=== PATIENT | male | born 1950 | race Caucasian/White ===

== ENCOUNTER 2021-03-17 23:46 | Inpatient (IN) ==
[2021-03-18 07:15] LABS: Hematocrit 14 % (42-52); Hemoglobin 4.5 g/dL (14.0-18.0); Mean Corpuscular HGB Conc 33 g/dL (31-36); Mean Corpuscular Hemoglobin 41 pg (27-31); Mean Corpuscular Volume 125 fL (80-94); Mean Platelet Volume 7.5 fL (7.4-10.4); Platelet Count 150 10^3/uL (150-450); Red Cell Distribution Width 20 % (10-15); White Blood Count 34.9 10^3/uL (3.5-10.8)
[2021-03-18 07:23] LABS: Albumin 4.1 g/dL (3.2-5.2); Albumin/Globulin Ratio 1.8 (1-3); Calcium 9.2 mg/dL (8.6-10.3); EGFR African American 76.6 (>60); EGFR Non-African American 63.3 (>60); Globulin 2.3 g/dL (2-4); Potassium 3.6 mmol/L (3.5-5.0); Total Bilirubin 2.8 mg/dL (0.2-1.0); Total Protein 6.4 g/dL (6.4-8.9)
[2021-03-18] MEDS ORDERED: Ondansetron 4 mg VIAL 2 MG/ML 2 ml VIAL IV PRN (08:42)
[2021-03-18 09:33] LABS: Immature Retic Fraction 0.72; RBC Retic Count 0.77 10^6/uL (4.18-5.48)
[2021-03-18 09:37] LABS: Rapid COVID-19 Molecular Undetected (Undetected)
[2021-03-18 11:04] LABS: Anisocytosis 2+; Hypochromasia 1+; Macrocytosis 2+; Microcytosis 1+; Polychromasia 2+
[2021-03-18 11:06] LABS: Spherocytes 2+
[2021-03-18 11:08] LABS: ABS Basophils 0.1 10^3/ul (0-0.2); ABS Eosinophils 0.2 10^3/ul (0-0.6); ABS Lymphocytes 28.5 10^3/ul (1.0-4.8); ABS Monocytes 0.8 10^3/ul (0-0.8); ABS Neutrophils 5.3 10^3/ul (1.5-7.7); ABS Nucleated RBC 0.2 10^3/ul; Eosinophil % 0.5 %; Lymphocyte % 81.7 %; Nucleated Red Blood Cells % 0.4
[2021-03-18 11:16] LABS: Corrected Retic Count 4.7 % (0.5-1.5); Hematocrit for Retic CNT 15 % (42-52)
[2021-03-18 13:46] LABS: Hematocrit 14 % (42-52); Hemoglobin 4.1 g/dL (14.0-18.0)
[2021-03-18] MEDS: methylPREDNISolone 125 mg 2 ML VIAL IV SCH (14:06)
[2021-03-18] MEDS: Enoxaparin 40 MG/0.4 ML SYR SUBCUT SCH (17:49)
[2021-03-19 09:58] LABS: Hematocrit 23 % (42-52); Hemoglobin 7.3 g/dL (14.0-18.0); Mean Corpuscular HGB Conc 32 g/dL (31-36); Mean Corpuscular Hemoglobin 35 pg (27-31); Mean Corpuscular Volume 107 fL (80-94); Mean Platelet Volume 7.7 fL (7.4-10.4); Platelet Count 135 10^3/uL (150-450); Red Blood Count 2.11 10^6 /uL (4.18-5.48); Red Cell Distribution Width 26 % (10-15); White Blood Count 72.8 10^3/uL (3.5-10.8)
[2021-03-19 10:20] LABS: Anisocytosis 2+; Hypochromasia 1+; Macrocytosis 1+; Microcytosis 1+; Polychromasia 2+; Spherocytes 1+
[2021-03-19 10:21] LABS: ABS Basophils 0.4 10^3/ul (0-0.2); ABS Eosinophils 0.1 10^3/ul (0-0.6); ABS Lymphocytes 60.5 10^3/ul (1.0-4.8); ABS Neutrophils 10.8 10^3/ul (1.5-7.7); ABS Nucleated RBC 0.1 10^3/ul; Eosinophil % 0.1 %; Lymphocyte % 83.1 %; Nucleated Red Blood Cells % 0.2
[2021-03-19] MEDS: methylPREDNISolone 125 mg 2 ML VIAL IV SCH (12:37)
[2021-03-19] MEDS: Enoxaparin 40 MG/0.4 ML SYR SUBCUT SCH (16:57)
[2021-03-20 05:50] LABS: Calcium 8.6 mg/dL (8.6-10.3); EGFR African American 94.6 (>60); EGFR Non-African American 78.2 (>60); Potassium 3.8 mmol/L (3.5-5.0)
[2021-03-20 09:57] LABS: RBC Retic Count 1.72 10^6/uL (4.18-5.48); Red Blood Count 1.72 10^6 /uL (4.18-5.48)
[2021-03-20 10:05] LABS: Corrected Retic Count 4.6 % (0.5-1.5); Hematocrit 19 % (42-52); Hematocrit for Retic CNT 19 % (42-52); Mean Corpuscular HGB Conc 35 g/dL (31-36); Mean Corpuscular Hemoglobin 37 pg (27-31); Mean Corpuscular Volume 107 fL (80-94); Mean Platelet Volume 8.7 fL (7.4-10.4); Platelet Count 108 10^3/uL (150-450); Red Cell Distribution Width 26 % (10-15); White Blood Count 53.5 10^3/uL (3.5-10.8)
[2021-03-20 10:27] LABS: Anisocytosis 1+; Polychromasia 1+
[2021-03-20 10:29] LABS: ABS Basophils 0.1 10^3/ul (0-0.2); ABS Lymphocytes 42.1 10^3/ul (1.0-4.8); ABS Monocytes 1.4 10^3/ul (0-0.8); ABS Neutrophils 9.9 10^3/ul (1.5-7.7); ABS Nucleated RBC 0.2 10^3/ul; Lymphocyte % 78.7 %; Nucleated Red Blood Cells % 0.3
[2021-03-20 11:35] LABS: Hemoglobin 6.4 g/dL (14.0-18.0)
[2021-03-20] MEDS: methylPREDNISolone 125 mg 2 ML VIAL IV SCH (12:09)
[2021-03-20 14:35] LABS: Hepatitis B Surface Antigen Nonreactive (Nonreactive)
[2021-03-20 14:53] LABS: Hepatitis B Surface Ab Not Immune (Immune)
[2021-03-20] MEDS: Enoxaparin 40 MG/0.4 ML SYR SUBCUT SCH (16:40)
[2021-03-20 18:51] LABS: Hematocrit 26 % (42-52); Hemoglobin 8.6 g/dL (14.0-18.0); Mean Corpuscular HGB Conc 33 g/dL (31-36); Mean Corpuscular Hemoglobin 33 pg (27-31); Mean Corpuscular Volume 102 fL (80-94); Mean Platelet Volume 7.5 fL (7.4-10.4); Platelet Count 111 10^3/uL (150-450); Red Blood Count 2.59 10^6 /uL (4.18-5.48); Red Cell Distribution Width 24 % (10-15); White Blood Count 66.3 10^3/uL (3.5-10.8)
[2021-03-21 06:25] LABS: Corrected Retic Count 4.9 % (0.5-1.5); Hematocrit 23 % (42-52); Hematocrit for Retic CNT 23 % (42-52); Hemoglobin 8.2 g/dL (14.0-18.0); Immature Retic Fraction 0.64; Mean Corpuscular HGB Conc 35 g/dL (31-36); Mean Corpuscular Hemoglobin 35 pg (27-31); Mean Corpuscular Volume 101 fL (80-94); Mean Platelet Volume 7.8 fL (7.4-10.4); Platelet Count 102 10^3/uL (150-450); RBC Retic Count 2.32 10^6/uL (4.18-5.48); Red Blood Count 2.32 10^6 /uL (4.18-5.48); Red Cell Distribution Width 23 % (10-15); White Blood Count 51.1 10^3/uL (3.5-10.8)
[2021-03-21 06:41] LABS: Albumin/Globulin Ratio 1.8 (1-3); Calcium 9.2 mg/dL (8.6-10.3); EGFR African American 91.2 (>60); EGFR Non-African American 75.4 (>60); Globulin 2.2 g/dL (2-4); Magnesium 2.4 mg/dL (1.9-2.7); Potassium 3.9 mmol/L (3.5-5.0); Total Bilirubin 2.2 mg/dL (0.2-1.0); Total Protein 6.2 g/dL (6.4-8.9)
[2021-03-21 07:00] LABS: ABS Basophils 0.1 10^3/ul (0-0.2); ABS Lymphocytes 41.8 10^3/ul (1.0-4.8); ABS Monocytes 0.9 10^3/ul (0-0.8); ABS Neutrophils 8.3 10^3/ul (1.5-7.7); ABS Nucleated RBC 0.2 10^3/ul; Lymphocyte % 81.8 %; Nucleated Red Blood Cells % 0.3
[2021-03-21 07:25] LABS: Macrocytosis 1+; Polychromasia 1+
[2021-03-21] MEDS ORDERED: methylPREDNISolone 125 mg 2 ML VIAL IV PRN (08:29)
[2021-03-21] MEDS ORDERED: diPHENhydraMINE IV 50 MG/ML 1 ml VIAL (BENADRYL) IV ONE (09:00)
[2021-03-21] MEDS: methylPREDNISolone 125 mg 2 ML VIAL IV SCH (09:06)
[2021-03-21] MEDS ORDERED: riTUXimab-ABBS 10 MG/ML 10 ML VIAL IVPB ONE (09:30)
[2021-03-21] MEDS ORDERED: RITUXIMAB ABBS IVPB ONE (10:00)
[2021-03-21] MEDS ORDERED: diPHENhydraMINE IV 50 MG/ML 1 ml VIAL (BENADRYL) IV PRN (10:00)
[2021-03-21] MEDS ORDERED: Famotidine IV 10 MG/ML 2 ml VIAL (20 mg) IV SLOW PU PRN (10:00)
[2021-03-21] MEDS ORDERED: Meperidine 50 mg/ml SYRINGE 1 ml IV PRN (10:00)
[2021-03-21] MEDS ORDERED: NS 0.9% IVPB ONE (10:00)
[2021-03-21] MEDS: Enoxaparin 40 MG/0.4 ML SYR SUBCUT SCH (16:06)
[2021-03-22 06:32] LABS: Hematocrit 23 % (42-52); Hemoglobin 7.7 g/dL (14.0-18.0); Mean Corpuscular HGB Conc 34 g/dL (31-36); Mean Corpuscular Hemoglobin 35 pg (27-31); Mean Corpuscular Volume 101 fL (80-94); Mean Platelet Volume 7.8 fL (7.4-10.4); Platelet Count 90 10^3/uL (150-450); Red Blood Count 2.23 10^6 /uL (4.18-5.48); Red Cell Distribution Width 24 % (10-15); White Blood Count 23.2 10^3/uL (3.5-10.8)
[2021-03-22 07:00] LABS: Calcium 8.5 mg/dL (8.6-10.3); EGFR African American 75.1 (>60); EGFR Non-African American 62.1 (>60); Magnesium 2.2 mg/dL (1.9-2.7); Potassium 3.3 mmol/L (3.5-5.0)
[2021-03-22] MEDS ORDERED: Potassium Chlor 20 meq TAB.ER PO ONE (08:03)
[2021-03-22] MEDS: methylPREDNISolone 125 mg 2 ML VIAL IV SCH (11:58)
[2021-03-22] MEDS: Enoxaparin 40 MG/0.4 ML SYR SUBCUT SCH (17:05)
[2021-03-23 06:27] LABS: Hematocrit 24 % (42-52); Hemoglobin 8.4 g/dL (14.0-18.0); Mean Corpuscular HGB Conc 35 g/dL (31-36); Mean Corpuscular Hemoglobin 35 pg (27-31); Mean Corpuscular Volume 101 fL (80-94); Platelet Count 95 10^3/uL (150-450); Red Blood Count 2.37 10^6 /uL (4.18-5.48); Red Cell Distribution Width 25 % (10-15); White Blood Count 29.2 10^3/uL (3.5-10.8)
[2021-03-23 06:44] LABS: Calcium 8.9 mg/dL (8.6-10.3); EGFR African American 87.1 (>60); Magnesium 2.1 mg/dL (1.9-2.7); Potassium 3.6 mmol/L (3.5-5.0)
[2021-03-23 10:26] LABS: Troponin I 0.04 ng/mL (<0.03)
[2021-03-23] MEDS: methylPREDNISolone 125 mg 2 ML VIAL IV SCH (11:07)
[2021-03-23 14:10] LABS: Troponin I 0.04 ng/mL (<0.03)
[2021-03-23] MEDS: Enoxaparin 40 MG/0.4 ML SYR SUBCUT SCH (18:32)
[2021-03-24 05:25] LABS: Hematocrit 25 % (42-52); Hemoglobin 8.5 g/dL (14.0-18.0); Mean Corpuscular HGB Conc 34 g/dL (31-36); Mean Corpuscular Hemoglobin 35 pg (27-31); Mean Corpuscular Volume 102 fL (80-94); Mean Platelet Volume 7.9 fL (7.4-10.4); Platelet Count 105 10^3/uL (150-450); Red Blood Count 2.44 10^6 /uL (4.18-5.48); Red Cell Distribution Width 25 % (10-15); White Blood Count 30.3 10^3/uL (3.5-10.8)
[2021-03-24 05:47] LABS: Calcium 9.3 mg/dL (8.6-10.3); EGFR African American 82.4 (>60); EGFR Non-African American 68.1 (>60); Magnesium 2.2 mg/dL (1.9-2.7); Potassium 3.7 mmol/L (3.5-5.0)
[2021-03-24 11:48] VITALS: BP 120/69
[2021-03-24] MEDS ORDERED: Potassium Chlor 20 meq TAB.ER PO ONE (12:00)
[2021-03-24] MEDS ORDERED: Potassium Chlor 10 meq TAB PO ONE (12:00)
[2021-03-24] MEDS ORDERED: Regadenoson 0.4 MG/5 ML SYRINGE ONE (15:50)
[2021-04-07] MEDS ORDERED: CMCS: Testosterone Cypionate (NF) 200 MG/ML VIAL IM SCH (09:00)
== END 2021-03-24 20:00 | disposition home or self-care (01) | DRG 660 ==
LOC: ED 23:46 → MED 03-18 10:50 → SUATTDRO 03-18 10:50 → MED 03-24 06:58
PROVIDERS: ADMIT Internal Medicine; ATTEND Internal Medicine

== ENCOUNTER 2021-06-14 12:57 | Inpatient (IN) ==
[2021-06-14 13:56] LABS: PCO2 Arterial 35 mmHg (35-45); PO2 Arterial 70 mmHg (80-100)
[2021-06-14 14:42] LABS: Hematocrit 35 % (42-52); Hemoglobin 11.6 g/dL (14.0-18.0); Mean Corpuscular HGB Conc 33 g/dL (31-36); Mean Corpuscular Hemoglobin 30 pg (27-31); Mean Corpuscular Volume 91 fL (80-94); Mean Platelet Volume 8.6 fL (7.4-10.4); Platelet Count 298 10^3/uL (150-450); Red Blood Count 3.83 10^6 /uL (4.18-5.48); Red Cell Distribution Width 17 % (10-15); White Blood Count 19.3 10^3/uL (3.5-10.8)
[2021-06-14 14:54] LABS: Activated Partial Thrombo Time 31.7 seconds (26.0-38.0); INR 1.3 (0.86-1.15)
[2021-06-14 15:03] LABS: Troponin I 0.01 ng/mL (<0.03)
[2021-06-14] MEDS ORDERED: Lactated Ringers 1000 ml BAG 1,000 ML IV ONE ×2 (15:07→21:46)
[2021-06-14 15:15] LABS: ABS Basophils 0.3 10^3/ul (0-0.2); ABS Eosinophils 0.1 10^3/ul (0-0.6); ABS Lymphocytes 6.1 10^3/ul (1.0-4.8); ABS Monocytes 1.3 10^3/ul (0-0.8); ABS Neutrophils 11.6 10^3/ul (1.5-7.7); Eosinophil % 0.3 %; Lymphocyte % 31.6 %; Nucleated Red Blood Cells % 0.1
[2021-06-14 15:17] LABS: Urine Appearance Clear; Urine Bilirubin Negative (Negative); Urine Blood Negative (Negative); Urine Color Amber; Urine Glucose Negative (Negative); Urine Ketones Negative (Negative); Urine Nitrite Negative (Negative); Urine Protein 1+(30 mg/dL) (Negative); Urine Specific Gravity 1.019 (1.002-1.030); Urine Urobilinogen Negative (Negative)
[2021-06-14 15:19] LABS: Albumin 4.1 g/dL (3.2-5.2); Albumin/Globulin Ratio 1.5 (1-3); C Reactive Protein 235.42 mg/L (<8.01); Calcium 9.8 mg/dL (8.6-10.3); Globulin 2.8 g/dL (2-4); Potassium 3.7 mmol/L (3.5-5.0); Total Bilirubin 1.1 mg/dL (0.2-1.0); Total Protein 6.9 g/dL (6.4-8.9); eGFR CKD-EPI 44.4 (>60)
[2021-06-14 15:20] LABS: Urine Amorphous Crystals Present (Absent); Urine Bacteria 1+ (Absent); Urine Red Blood Cell Trace(0-2/hpf) (Absent); Urine White Blood Cell 1+(6-10/hpf) (Absent)
[2021-06-14] MEDS ORDERED: Iodixanol (CONTRAST) 320 MG/ML 100 ML SDV IV ONE (15:47)
[2021-06-14 16:07] LABS: Salicylate < 2.50 mg/dL (<30)
[2021-06-14 16:08] LABS: Acetaminophen < 15 mcg/mL
[2021-06-14] MEDS ORDERED: Rivastigmine 1.5 mg CAP (NF) PO ONE (19:18)
[2021-06-14] MEDS ORDERED: DULoxetine DR 30 mg CAP PO SCH (21:00)
[2021-06-14] MEDS ORDERED: Fluticasone NASAL SPRAY 50MCG 16 gm SPRAY BTL INTRANASAL SCH (21:00)
[2021-06-15] MEDS ORDERED: Amoxicillin/Clavul 875/125 TAB (Augmentin 875 tab) PO SCH (01:50)
[2021-06-15] MEDS ORDERED: Azithromycin 500 mg/250 ml NS 500 MG/250 ML BAG IVPB SCH ×2 (02:30→22:00)
[2021-06-15] MEDS: cefTRIAXone 1 gm/50 mL NS BAG 1 GM/50 ML BAG IVPB SCH ×2 (02:41→20:39)
[2021-06-15 03:43] LABS: TSH Ultra Thyroid Stim Horm 4.85 mcIU/mL (0.34-5.60)
[2021-06-15 06:56] LABS: Hematocrit 32 % (42-52); Hemoglobin 10.9 g/dL (14.0-18.0); Mean Corpuscular HGB Conc 34 g/dL (31-36); Mean Corpuscular Hemoglobin 31 pg (27-31); Mean Corpuscular Volume 91 fL (80-94); Mean Platelet Volume 8.7 fL (7.4-10.4); Platelet Count 304 10^3/uL (150-450); Red Blood Count 3.53 10^6 /uL (4.18-5.48); Red Cell Distribution Width 17 % (10-15); White Blood Count 20.2 10^3/uL (3.5-10.8)
[2021-06-15 07:05] LABS: ABS Basophils 0.2 10^3/ul (0-0.2); ABS Lymphocytes 4.5 10^3/ul (1.0-4.8); ABS Monocytes 1.2 10^3/ul (0-0.8); ABS Neutrophils 14.3 10^3/ul (1.5-7.7); Eosinophil % 0.2 %; Lymphocyte % 22.3 %; Nucleated Red Blood Cells % 0.1
[2021-06-15 07:18] LABS: Calcium 9.2 mg/dL (8.6-10.3); Magnesium 2.2 mg/dL (1.9-2.7); Potassium 3.9 mmol/L (3.5-5.0); eGFR CKD-EPI 70.2 (>60)
[2021-06-15] MEDS ORDERED: Enoxaparin 30 MG/0.3 ML SYR SUBCUT SCH (07:30)
[2021-06-15] MEDS: Enoxaparin 40 MG/0.4 ML SYR SUBCUT SCH (09:20)
[2021-06-15] MEDS: Multivitamins/Minerals TAB PO SCH (09:21)
[2021-06-15] MEDS: CMCS:Rivastigmine 1.5 mg CAP (NF) PO SCH ×2 (11:43→20:40)
[2021-06-16 05:51] LABS: Hematocrit 32 % (42-52); Hemoglobin 10.6 g/dL (14.0-18.0); Mean Corpuscular HGB Conc 33 g/dL (31-36); Mean Corpuscular Hemoglobin 30 pg (27-31); Mean Corpuscular Volume 91 fL (80-94); Mean Platelet Volume 8.7 fL (7.4-10.4); Platelet Count 322 10^3/uL (150-450); Red Blood Count 3.54 10^6 /uL (4.18-5.48); Red Cell Distribution Width 17 % (10-15)
[2021-06-16 06:08] LABS: Calcium 9.5 mg/dL (8.6-10.3)
[2021-06-16] MEDS: Multivitamins/Minerals TAB PO SCH (08:55)
[2021-06-16] MEDS: CMCS:Rivastigmine 1.5 mg CAP (NF) PO SCH ×2 (08:56→22:23)
[2021-06-16] MEDS: Enoxaparin 40 MG/0.4 ML SYR SUBCUT SCH (08:56)
[2021-06-16] MEDS ORDERED: Lactated Ringers 1000 ml BAG 1,000 ML IV ONE (09:54)
[2021-06-16 10:34] LABS: PSA Screening Total 18.424 ng/mL (0-4.000)
[2021-06-17] MEDS: Multivitamins/Minerals TAB PO SCH (09:03)
[2021-06-17] MEDS: Enoxaparin 40 MG/0.4 ML SYR SUBCUT SCH (09:04)
[2021-06-17] MEDS: CMCS:Rivastigmine 1.5 mg CAP (NF) PO SCH ×2 (09:05→20:52)
[2021-06-17 09:10] LABS: Hematocrit 29 % (42-52); Hemoglobin 9.7 g/dL (14.0-18.0); Mean Corpuscular HGB Conc 33 g/dL (31-36); Mean Corpuscular Hemoglobin 30 pg (27-31); Mean Corpuscular Volume 90 fL (80-94); Mean Platelet Volume 9.1 fL (7.4-10.4); Platelet Count 350 10^3/uL (150-450); Red Blood Count 3.25 10^6 /uL (4.18-5.48); Red Cell Distribution Width 17 % (10-15)
[2021-06-17 09:26] LABS: Calcium 9.3 mg/dL (8.6-10.3); Potassium 3.7 mmol/L (3.5-5.0); eGFR CKD-EPI 78.6 (>60)
[2021-06-17] MEDS ORDERED: Potassium Chlor 20 meq TAB.ER PO ONE (10:09)
[2021-06-17] MEDS: Senna TAB 8.6 mg TAB PO SCH (20:49)
[2021-06-17] MEDS: Calcium Carb (TUMS) 500 mg CHEW TAB PO SCH (21:20)
[2021-06-18 05:16] LABS: Hematocrit 26 % (42-52); Hemoglobin 8.8 g/dL (14.0-18.0); Mean Corpuscular HGB Conc 33 g/dL (31-36); Mean Corpuscular Hemoglobin 30 pg (27-31); Mean Corpuscular Volume 89 fL (80-94); Mean Platelet Volume 8.8 fL (7.4-10.4); Platelet Count 390 10^3/uL (150-450); Red Blood Count 2.97 10^6 /uL (4.18-5.48); Red Cell Distribution Width 17 % (10-15); White Blood Count 14.4 10^3/uL (3.5-10.8)
[2021-06-18 05:26] LABS: ABS Eosinophils 0.2 10^3/ul (0-0.6); ABS Lymphocytes 5.6 10^3/ul (1.0-4.8); ABS Monocytes 0.7 10^3/ul (0-0.8); ABS Neutrophils 7.9 10^3/ul (1.5-7.7); Eosinophil % 1.7 %; Lymphocyte % 38.4 %
[2021-06-18 05:32] LABS: Anion Gap 4 mmol/L (2-11); Blood Urea Nitrogen 16 mg/dL (6-24); CO2 Carbon Dioxide 32 mmol/L (22-32); Calcium 9.2 mg/dL (8.6-10.3); Chloride 93 mmol/L (101-111); Glucose 110 mg/dL (70-100); Potassium 3.7 mmol/L (3.5-5.0); Sodium 129 mmol/L (135-145); eGFR CKD-EPI 91.3 (>60)
[2021-06-18] MEDS ORDERED: Potassium Chlor 20 meq TAB.ER PO ONE (07:27)
[2021-06-18] MEDS: CMCS:Rivastigmine 1.5 mg CAP (NF) PO SCH ×2 (09:59→21:50)
[2021-06-18] MEDS: Calcium Carb (TUMS) 500 mg CHEW TAB PO SCH ×2 (09:59→21:48)
[2021-06-18] MEDS: Enoxaparin 40 MG/0.4 ML SYR SUBCUT SCH (10:00)
[2021-06-18] MEDS: Multivitamins/Minerals TAB PO SCH (10:00)
[2021-06-18 10:40] LABS: ALT 51 U/L (7-52); AST 64 U/L (13-39); Albumin 3.3 g/dL (3.2-5.2); Albumin/Globulin Ratio 1.2 (1-3); Alkaline Phosphatase 98 U/L (35-149); Globulin 2.7 g/dL (2-4); Indirect Bilirubin 0.7 mg/dL (0.3-1.0)
[2021-06-18 11:04] LABS: Corrected Retic Count 0.7 % (0.5-1.5); Hematocrit for Retic CNT 27 % (42-52); Immature Retic Fraction 0.14; RBC Retic Count 2.89 10^6/uL (4.18-5.48)
[2021-06-18 11:15] LABS: Vitamin B12 346 pg/mL (180-914)
[2021-06-18 11:25] LABS: Iron 20 ug/dL (50-212); LDH 533 U/L (140-271)
[2021-06-18] MEDS: Senna TAB 8.6 mg TAB PO SCH (21:49)
[2021-06-19 07:12] LABS: Hematocrit 27 % (42-52); Hemoglobin 9.1 g/dL (14.0-18.0); Mean Corpuscular HGB Conc 34 g/dL (31-36); Mean Corpuscular Hemoglobin 30 pg (27-31); Mean Corpuscular Volume 89 fL (80-94); Mean Platelet Volume 9.5 fL (7.4-10.4); Platelet Count 493 10^3/uL (150-450); Red Blood Count 3.02 10^6 /uL (4.18-5.48); Red Cell Distribution Width 17 % (10-15); White Blood Count 14.4 10^3/uL (3.5-10.8)
[2021-06-19 07:32] LABS: Calcium 9.4 mg/dL (8.6-10.3); eGFR CKD-EPI 91.3 (>60)
[2021-06-19] MEDS: Calcium Carb (TUMS) 500 mg CHEW TAB PO SCH ×2 (09:12→20:41)
[2021-06-19] MEDS: Multivitamins/Minerals TAB PO SCH (09:13)
[2021-06-19] MEDS: CMCS:Rivastigmine 1.5 mg CAP (NF) PO SCH ×2 (09:13→20:44)
[2021-06-19] MEDS: Enoxaparin 40 MG/0.4 ML SYR SUBCUT SCH (09:13)
[2021-06-19] MEDS ORDERED: Morphine 2 MG/ML SYRINGE IV ONE (11:18)
[2021-06-19 11:36] LABS: PCO2 Arterial 37 mmHg (35-45); PO2 Arterial 81 mmHg (80-100)
[2021-06-19 12:06] LABS: Magnesium 2.1 mg/dL (1.9-2.7); Phosphorus 4.5 mg/dL (2.5-5.0)
[2021-06-19] MEDS ORDERED: Iodixanol (CONTRAST) 320 MG/ML 100 ML SDV IV ONE (14:01)
[2021-06-19] MEDS: Senna TAB 8.6 mg TAB PO SCH (20:40)
[2021-06-20 08:28] LABS: Hematocrit 24 % (42-52); Hemoglobin 7.9 g/dL (14.0-18.0); Mean Corpuscular HGB Conc 33 g/dL (31-36); Mean Corpuscular Hemoglobin 30 pg (27-31); Mean Corpuscular Volume 89 fL (80-94); Mean Platelet Volume 8.8 fL (7.4-10.4); Platelet Count 555 10^3/uL (150-450); Red Blood Count 2.67 10^6 /uL (4.18-5.48); Red Cell Distribution Width 17 % (10-15); White Blood Count 10.4 10^3/uL (3.5-10.8)
[2021-06-20 08:34] LABS: ABS Basophils 0.1 10^3/ul (0-0.2); ABS Eosinophils 0.2 10^3/ul (0-0.6); ABS Lymphocytes 3.4 10^3/ul (1.0-4.8); ABS Monocytes 0.6 10^3/ul (0-0.8); ABS Neutrophils 6.2 10^3/ul (1.5-7.7); Eosinophil % 1.9 %; Lymphocyte % 32.5 %
[2021-06-20] MEDS: Calcium Carb (TUMS) 500 mg CHEW TAB PO SCH ×2 (08:35→21:49)
[2021-06-20] MEDS: CMCS:Rivastigmine 1.5 mg CAP (NF) PO SCH ×2 (08:35→21:51)
[2021-06-20] MEDS: Enoxaparin 40 MG/0.4 ML SYR SUBCUT SCH (08:35)
[2021-06-20 08:36] LABS: Calcium 8.8 mg/dL (8.6-10.3); Magnesium 2.1 mg/dL (1.9-2.7); Potassium 3.3 mmol/L (3.5-5.0); eGFR CKD-EPI 87.8 (>60)
[2021-06-20] MEDS: Multivitamins/Minerals TAB PO SCH (08:36)
[2021-06-20 16:27] LABS: % Iron Saturation 10 % (14 - 50); Total Iron Binding Capacity 173 mcg/dL (250 - 400)
[2021-06-20 18:31] LABS: Ferritin > 1500.0 ng/mL (24-336)
[2021-06-20] MEDS ORDERED: Potassium Chlor 20 meq TAB.ER PO ONE (20:36)
[2021-06-20] MEDS ORDERED: Iodixanol (CONTRAST) 320 MG/ML 100 ML SDV IV ONE (20:40)
[2021-06-20] MEDS: Senna TAB 8.6 mg TAB PO SCH (22:43)
[2021-06-21 08:56] LABS: Hematocrit 25 % (42-52); Hemoglobin 8.1 g/dL (14.0-18.0); Mean Corpuscular HGB Conc 33 g/dL (31-36); Mean Corpuscular Hemoglobin 29 pg (27-31); Mean Corpuscular Volume 87 fL (80-94); Mean Platelet Volume 8.3 fL (7.4-10.4); Platelet Count 656 10^3/uL (150-450); Red Blood Count 2.85 10^6 /uL (4.18-5.48); Red Cell Distribution Width 17 % (10-15); White Blood Count 11.1 10^3/uL (3.5-10.8)
[2021-06-21 09:37] LABS: Calcium 8.6 mg/dL (8.6-10.3); Magnesium 2.1 mg/dL (1.9-2.7); Potassium 3.8 mmol/L (3.5-5.0); eGFR CKD-EPI 88.9 (>60)
[2021-06-21] MEDS: CMCS:Rivastigmine 1.5 mg CAP (NF) PO SCH ×2 (10:26→20:27)
[2021-06-21] MEDS: Calcium Carb (TUMS) 500 mg CHEW TAB PO SCH ×2 (10:26→20:25)
[2021-06-21] MEDS: Multivitamins/Minerals TAB PO SCH (10:26)
[2021-06-21] MEDS: Enoxaparin 40 MG/0.4 ML SYR SUBCUT SCH (10:27)
[2021-06-21] MEDS ORDERED: Senna TAB 8.6 mg TAB PO ONE (12:00)
[2021-06-21] MEDS ORDERED: Polyethylene Glycol 3350 17 GM PACKET PO PRN (12:28)
[2021-06-21] MEDS: Senna TAB 8.6 mg TAB PO SCH (20:25)
[2021-06-22 05:20] LABS: Hematocrit 25 % (42-52); Hematocrit for Retic CNT 25 % (42-52); Hemoglobin 8.4 g/dL (14.0-18.0); Mean Corpuscular HGB Conc 34 g/dL (31-36); Mean Corpuscular Hemoglobin 30 pg (27-31); Mean Corpuscular Volume 88 fL (80-94); Mean Platelet Volume 8.3 fL (7.4-10.4); Platelet Count 719 10^3/uL (150-450); RBC Retic Count 2.84 10^6/uL (4.18-5.48); Red Blood Count 2.84 10^6 /uL (4.18-5.48); Red Cell Distribution Width 17 % (10-15); White Blood Count 11.2 10^3/uL (3.5-10.8)
[2021-06-22 05:26] LABS: Corrected Retic Count 1.7 % (0.5-1.5)
[2021-06-22 05:37] LABS: Calcium 8.9 mg/dL (8.6-10.3); Magnesium 2.1 mg/dL (1.9-2.7); Potassium 3.5 mmol/L (3.5-5.0); eGFR CKD-EPI 78.6 (>60)
[2021-06-22] MEDS ORDERED: Potassium Chlor 20 meq TAB.ER PO ONE (07:07)
[2021-06-22] MEDS: Multivitamins/Minerals TAB PO SCH (09:40)
[2021-06-22] MEDS: Enoxaparin 40 MG/0.4 ML SYR SUBCUT SCH (09:40)
[2021-06-22] MEDS: Calcium Carb (TUMS) 500 mg CHEW TAB PO SCH ×2 (09:41→20:37)
[2021-06-22] MEDS: CMCS:Rivastigmine 1.5 mg CAP (NF) PO SCH ×2 (09:42→20:36)
[2021-06-22 14:41] LABS: Rapid COVID-19 Molecular Undetected (Undetected)
[2021-06-22] MEDS ORDERED: Enoxaparin 80 MG/0.8 ML SYR SUBCUT ONE (14:45)
[2021-06-22] MEDS: Senna TAB 8.6 mg TAB PO SCH (20:37)
[2021-06-23 06:51] LABS: Hematocrit 23 % (42-52); Hemoglobin 7.5 g/dL (14.0-18.0); Mean Corpuscular HGB Conc 33 g/dL (31-36); Mean Corpuscular Hemoglobin 29 pg (27-31); Mean Corpuscular Volume 88 fL (80-94); Mean Platelet Volume 8.5 fL (7.4-10.4); Platelet Count 696 10^3/uL (150-450); Red Cell Distribution Width 17 % (10-15); White Blood Count 11.8 10^3/uL (3.5-10.8)
[2021-06-23 07:11] LABS: Calcium 8.6 mg/dL (8.6-10.3); Potassium 3.6 mmol/L (3.5-5.0); eGFR CKD-EPI 90.1 (>60)
[2021-06-23] MEDS: Calcium Carb (TUMS) 500 mg CHEW TAB PO SCH (08:06)
[2021-06-23] MEDS: Multivitamins/Minerals TAB PO SCH (08:07)
[2021-06-23] MEDS: CMCS:Rivastigmine 1.5 mg CAP (NF) PO SCH (08:08)
[2021-06-23 08:25] LABS: ABS Basophils 0.1 10^3/ul (0-0.2); ABS Eosinophils 0.4 10^3/ul (0-0.6); ABS Lymphocytes 5.6 10^3/ul (1.0-4.8); ABS Monocytes 0.6 10^3/ul (0-0.8); ABS Neutrophils 5.2 10^3/ul (1.5-7.7); Eosinophil % 3.1 %; Lymphocyte % 47.7 %; Nucleated Red Blood Cells % 0.2
[2021-06-23 08:26] LABS: RBC Morphology Normal (Normal)
[2021-06-23 18:20] VITALS: BP 117/51
== END 2021-06-23 21:40 | disposition home or self-care (01) | DRG 872 ==
LOC: EDHOLD 12:57 → ED 12:57 → SUATTDRO 20:33 → INTOOBSV 20:33 → OBSVTOIN 20:33 → EDHOLD 23:00 → MED 06-15 00:49 → SUATTDRO 06-16 13:00
PROVIDERS: ADMIT Internal Medicine; ATTEND Hospitalist

== ENCOUNTER 2021-06-27 15:27 | Inpatient (IN) ==
[2021-06-27] MEDS ORDERED: Lactated Ringers 1000 ml BAG 1,000 ML IV ONE (15:45)
[2021-06-27 16:14] LABS: Hemoglobin 5.2 g/dL (14.0-18.0)
[2021-06-27 16:20] LABS: Activated Partial Thrombo Time 40.5 seconds (26.0-38.0); INR 3.72 (0.86-1.15)
[2021-06-27 16:26] LABS: Albumin 3.3 g/dL (3.2-5.2); Albumin/Globulin Ratio 1.3 (1-3); Alkaline Phosphatase 107 U/L (35-149); Anion Gap 9 mmol/L (2-11); Blood Urea Nitrogen 32 mg/dL (6-24); C Reactive Protein 262.01 mg/L (<8.01); CO2 Carbon Dioxide 28 mmol/L (22-32); Chloride 97 mmol/L (101-111); Globulin 2.5 g/dL (2-4); Glucose 108 mg/dL (70-100); Potassium 4.7 mmol/L (3.5-5.0); Sodium 134 mmol/L (135-145); Total Protein 5.8 g/dL (6.4-8.9); eGFR CKD-EPI 47.2 (>60)
[2021-06-27 16:30] LABS: Troponin I 1.74 ng/mL (<0.03)
[2021-06-27 17:00] LABS: ABS Basophils 0.1 10^3/ul (0-0.2); ABS Lymphocytes 7.2 10^3/ul (1.0-4.8); ABS Monocytes 1.1 10^3/ul (0-0.8); ABS Neutrophils 8.3 10^3/ul (1.5-7.7); Eosinophil % 0.1 %; Hematocrit 17 % (42-52); Mean Corpuscular HGB Conc 32 g/dL (31-36); Mean Corpuscular Hemoglobin 28 pg (27-31); Mean Corpuscular Volume 88 fL (80-94); Mean Platelet Volume 8.2 fL (7.4-10.4); Platelet Count 823 10^3/uL (150-450); Red Blood Count 1.88 10^6 /uL (4.18-5.48); Red Cell Distribution Width 17 % (10-15); White Blood Count 16.8 10^3/uL (3.5-10.8)
[2021-06-27 17:01] LABS: Anisocytosis 1+; Polychromasia 2+
[2021-06-27] MEDS ORDERED: Vancomycin 1,500 MG in NS 0.9% 250 ml 250 ML IVPB ONE (17:02)
[2021-06-27] MEDS ORDERED: Cefepime 2 GM in Dextrose 2 GM/50 ML BAG IV ONE (17:02)
[2021-06-27 17:17] LABS: ALT 2791 U/L (7-52); AST 5166 U/L (13-39)
[2021-06-27] MEDS ORDERED: Cefepime 2 GM in Dextrose 2 GM/50 ML BAG IV SCH (19:00)
[2021-06-27] MEDS ORDERED: Meropenem 1 GM PREMIX(*) 1 GM/50 ML BAG IV SCH (19:00)
[2021-06-27] MEDS ORDERED: Pantoprazole 80 mg in NS BAG 80 MG/250 ML BAG IV SCH (19:00)
[2021-06-27] MEDS ORDERED: diPHENhydraMINE IV 50 MG/ML 1 ml VIAL (BENADRYL) IV ONE (19:53)
[2021-06-27 20:12] LABS: Acetaminophen < 15 mcg/mL
[2021-06-27 20:14] LABS: Urine Appearance Cloudy; Urine Bilirubin Negative (Negative); Urine Blood 3+ (Negative); Urine Color Amber; Urine Glucose Negative (Negative); Urine Ketones Negative (Negative); Urine Nitrite Negative (Negative); Urine Protein 2+(100 mg/dL) (Negative); Urine Specific Gravity 1.017 (1.002-1.030); Urine Urobilinogen Positive (Negative)
[2021-06-27 20:18] LABS: Hemoglobin 4.8 g/dL (14.0-18.0)
[2021-06-27 20:22] LABS: Urine Bacteria 1+ (Absent); Urine Red Blood Cell Trace(0-2/hpf) (Absent); Urine Squamous Epithelial Cell Present (Absent); Urine White Blood Cell Trace(0-5/hpf) (Absent)
[2021-06-27 20:25] LABS: Albumin 3.1 g/dL (3.2-5.2); Albumin/Globulin Ratio 1.3 (1-3); Alkaline Phosphatase 107 U/L (35-149); Anion Gap 11 mmol/L (2-11); Blood Urea Nitrogen 34 mg/dL (6-24); CO2 Carbon Dioxide 26 mmol/L (22-32); Calcium 8.8 mg/dL (8.6-10.3); Chloride 99 mmol/L (101-111); Globulin 2.3 g/dL (2-4); Glucose 122 mg/dL (70-100); Magnesium 2.5 mg/dL (1.9-2.7); Potassium 4.7 mmol/L (3.5-5.0); Sodium 136 mmol/L (135-145); Total Protein 5.4 g/dL (6.4-8.9); eGFR CKD-EPI 47.9 (>60)
[2021-06-27 20:31] LABS: Troponin I 1.81 ng/mL (<0.03)
[2021-06-27 20:42] LABS: ALT 2950 U/L (7-52); AST 5587 U/L (13-39)
[2021-06-27 20:47] LABS: Anisocytosis 1+; Polychromasia 2+
[2021-06-27 20:49] LABS: Hypochromasia 1+
[2021-06-27 20:55] LABS: ABS Basophils 0.1 10^3/ul (0-0.2); ABS Lymphocytes 6.6 10^3/ul (1.0-4.8); ABS Monocytes 0.9 10^3/ul (0-0.8); ABS Neutrophils 7.6 10^3/ul (1.5-7.7); ABS Nucleated RBC 1.7 10^3/ul; Eosinophil % 0.1 %; Hematocrit 15 % (42-52); Lymphocyte % 43.3 %; Mean Corpuscular HGB Conc 32 g/dL (31-36); Mean Corpuscular Hemoglobin 29 pg (27-31); Mean Corpuscular Volume 90 fL (80-94); Mean Platelet Volume 8.5 fL (7.4-10.4); Nucleated Red Blood Cells % 11.1; Platelet Count 781 10^3/uL (150-450); Red Blood Count 1.66 10^6 /uL (4.18-5.48); Red Cell Distribution Width 17 % (10-15); White Blood Count 15.2 10^3/uL (3.5-10.8)
[2021-06-27] MEDS ORDERED: SERTRALINE PO SCH (21:00)
[2021-06-27] MEDS: methylPREDNISolone 125 mg 2 ML VIAL IV SCH (21:40)
[2021-06-27 22:26] LABS: Hematocrit for Retic CNT 18 % (42-52); Immature Retic Fraction 0.52; RBC Retic Count 2.11 10^6/uL (4.18-5.48)
[2021-06-27 22:29] LABS: Hemoglobin 5.9 g/dL (14.0-18.0)
[2021-06-27 22:36] LABS: Activated Partial Thrombo Time 37.8 seconds (26.0-38.0); INR 3.82 (0.86-1.15)
[2021-06-27 22:59] LABS: Albumin 3.1 g/dL (3.2-5.2); Albumin/Globulin Ratio 1.3 (1-3); Alkaline Phosphatase 104 U/L (35-149); Anion Gap 11 mmol/L (2-11); Blood Urea Nitrogen 32 mg/dL (6-24); CO2 Carbon Dioxide 25 mmol/L (22-32); Calcium 8.6 mg/dL (8.6-10.3); Chloride 100 mmol/L (101-111); Globulin 2.3 g/dL (2-4); Glucose 107 mg/dL (70-100); Magnesium 2.4 mg/dL (1.9-2.7); Phosphorus 3.5 mg/dL (2.5-5.0); Potassium 4.5 mmol/L (3.5-5.0); Sodium 136 mmol/L (135-145); Total Protein 5.4 g/dL (6.4-8.9); eGFR CKD-EPI 52.4 (>60)
[2021-06-27 23:02] LABS: Anisocytosis 1+; Polychromasia 1+; Troponin I 1.99 ng/mL (<0.03)
[2021-06-27 23:03] LABS: ABS Basophils 0.1 10^3/ul (0-0.2); ABS Lymphocytes 6.7 10^3/ul (1.0-4.8); ABS Monocytes 0.8 10^3/ul (0-0.8); ABS Nucleated RBC 2.4 10^3/ul; Hematocrit 18 % (42-52); Lymphocyte % 45.9 %; Mean Corpuscular HGB Conc 32 g/dL (31-36); Mean Corpuscular Hemoglobin 28 pg (27-31); Mean Corpuscular Volume 87 fL (80-94); Mean Platelet Volume 8.2 fL (7.4-10.4); Nucleated Red Blood Cells % 16.5; Platelet Count 687 10^3/uL (150-450); Red Cell Distribution Width 17 % (10-15); White Blood Count 14.6 10^3/uL (3.5-10.8)
[2021-06-27 23:08] LABS: Creatine Kinase 1637 U/L (10-223)
[2021-06-27] MEDS: RIVASTIGMINE 1.5 MG PO SCH (23:21)
[2021-06-27 23:36] LABS: LDH 7975 U/L (140-271)
[2021-06-27] MEDS: Meropenem 1 GM PREMIX(*) 1 GM/50 ML BAG IV SCH (23:42)
[2021-06-27 23:47] LABS: PCO2 Arterial 26 mmHg (35-45); PO2 Arterial 118 mmHg (80-100)
[2021-06-28 00:06] LABS: ALT 3073 U/L (7-52); AST 6016 U/L (13-39)
[2021-06-28] MEDS ORDERED: D5W IV ONE ×3 (01:19→05:29)
[2021-06-28] MEDS ORDERED: ACETYLCYSTEINE IV ONE ×3 (01:19→05:29)
[2021-06-28 02:48] LABS: Hematocrit 23 % (42-52); Hemoglobin 7.7 g/dL (14.0-18.0); Mean Corpuscular HGB Conc 34 g/dL (31-36); Mean Corpuscular Hemoglobin 30 pg (27-31); Mean Corpuscular Volume 88 fL (80-94); Mean Platelet Volume 8.2 fL (7.4-10.4); Platelet Count 521 10^3/uL (150-450); Red Blood Count 2.57 10^6 /uL (4.18-5.48); Red Cell Distribution Width 16 % (10-15); White Blood Count 13.2 10^3/uL (3.5-10.8)
[2021-06-28 03:04] LABS: Albumin/Globulin Ratio 1.5 (1-3); Alkaline Phosphatase 102 U/L (35-149); Anion Gap 13 mmol/L (2-11); Blood Urea Nitrogen 32 mg/dL (6-24); CO2 Carbon Dioxide 25 mmol/L (22-32); Calcium 8.6 mg/dL (8.6-10.3); Chloride 101 mmol/L (101-111); Glucose 182 mg/dL (70-100); Magnesium 2.5 mg/dL (1.9-2.7); Phosphorus 2.1 mg/dL (2.5-5.0); Sodium 139 mmol/L (135-145)
[2021-06-28 03:09] LABS: ABS Basophils 0.1 10^3/ul (0-0.2); ABS Lymphocytes 5.4 10^3/ul (1.0-4.8); ABS Monocytes 0.4 10^3/ul (0-0.8); ABS Neutrophils 7.3 10^3/ul (1.5-7.7); ABS Nucleated RBC 2.5 10^3/ul; Lymphocyte % 40.8 %; Nucleated Red Blood Cells % 18.8
[2021-06-28 03:23] LABS: ALT 3320 U/L (7-52); AST 5923 U/L (13-39); Troponin I 1.77 ng/mL (<0.03)
[2021-06-28] MEDS ORDERED: Potassium Phosphate IV 15 MMOLE in NS 0.9% 250 ml 250 ML IVPB ONE ×2 (06:15→17:00)
[2021-06-28] MEDS ORDERED: CALCIUM GLUCONATE 1GM/50ML NS 1 GM/50 ML BAG IV ONE (06:16)
[2021-06-28] MEDS: Meropenem 1 GM PREMIX(*) 1 GM/50 ML BAG IV SCH ×3 (06:19→22:01)
[2021-06-28 07:05] LABS: Albumin 3.1 g/dL (3.2-5.2); Albumin/Globulin Ratio 1.4 (1-3); Alkaline Phosphatase 114 U/L (35-149); Blood Urea Nitrogen 31 mg/dL (6-24); CO2 Carbon Dioxide 26 mmol/L (22-32); Calcium 8.8 mg/dL (8.6-10.3); Chloride 101 mmol/L (101-111); Globulin 2.2 g/dL (2-4); Glucose 203 mg/dL (70-100); Magnesium 2.5 mg/dL (1.9-2.7); Sodium 138 mmol/L (135-145); Total Protein 5.3 g/dL (6.4-8.9); eGFR CKD-EPI 67.3 (>60)
[2021-06-28 07:11] LABS: Troponin I 1.72 ng/mL (<0.03)
[2021-06-28 07:17] LABS: Hematocrit 27 % (42-52); Hemoglobin 9.2 g/dL (14.0-18.0); Mean Corpuscular HGB Conc 35 g/dL (31-36); Mean Corpuscular Hemoglobin 30 pg (27-31); Mean Corpuscular Volume 87 fL (80-94); Mean Platelet Volume 8.6 fL (7.4-10.4); Platelet Count 490 10^3/uL (150-450); Red Blood Count 3.07 10^6 /uL (4.18-5.48); Red Cell Distribution Width 16 % (10-15)
[2021-06-28 07:18] LABS: ABS Lymphocytes 5.9 10^3/ul (1.0-4.8); ABS Monocytes 0.6 10^3/ul (0-0.8); ABS Neutrophils 9.5 10^3/ul (1.5-7.7); ABS Nucleated RBC 3.3 10^3/ul; Eosinophil % 0.1 %; Lymphocyte % 36.9 %; Nucleated Red Blood Cells % 20.8
[2021-06-28 07:42] LABS: PCO2 Arterial 31 mmHg (35-45); PO2 Arterial 76 mmHg (80-100)
[2021-06-28] MEDS ORDERED: Vancomycin per Pharmacy 1 EA NOTE FOLLOW UP SCH (08:00)
[2021-06-28] MEDS: methylPREDNISolone 125 mg 2 ML VIAL IV SCH ×2 (08:02→20:14)
[2021-06-28] MEDS: Multivitamins/Minerals TAB PO SCH (08:03)
[2021-06-28 08:05] LABS: Anion Gap 11 mmol/L (2-11)
[2021-06-28] MEDS ORDERED: Pantoprazole VIAL 40 MG VIAL IV SCH (09:00)
[2021-06-28 09:03] LABS: Potassium Redraw 3.5 mmol/L (3.5-5.0)
[2021-06-28 09:04] LABS: Phosphorus 2.4 mg/dL (2.5-5.0)
[2021-06-28 09:30] LABS: Vancomycin Trough 10.7 mcg/mL
[2021-06-28] MEDS: RIVASTIGMINE 1.5 MG PO SCH ×2 (09:30→20:12)
[2021-06-28] MEDS: Vancomycin 1,500 MG in NS 0.9% 250 ml 250 ML IVPB SCH (10:02)
[2021-06-28 20:58] LABS: Hematocrit 26 % (42-52); Hemoglobin 8.9 g/dL (14.0-18.0); Mean Corpuscular HGB Conc 35 g/dL (31-36); Mean Corpuscular Hemoglobin 30 pg (27-31); Mean Corpuscular Volume 86 fL (80-94); Platelet Count 445 10^3/uL (150-450); Red Blood Count 3.01 10^6 /uL (4.18-5.48); Red Cell Distribution Width 16 % (10-15)
[2021-06-28 21:40] LABS: White Blood Count 29.8 10^3/uL (3.5-10.8)
[2021-06-28 21:52] LABS: Hypochromasia 1+; Polychromasia 1+
[2021-06-28 21:53] LABS: Anisocytosis 1+
[2021-06-29 04:59] LABS: Hematocrit 25 % (42-52); Hemoglobin 8.4 g/dL (14.0-18.0); Mean Corpuscular HGB Conc 33 g/dL (31-36); Mean Corpuscular Hemoglobin 29 pg (27-31); Mean Corpuscular Volume 87 fL (80-94); Platelet Count 429 10^3/uL (150-450); Red Blood Count 2.93 10^6 /uL (4.18-5.48); Red Cell Distribution Width 16 % (10-15); White Blood Count 33.2 10^3/uL (3.5-10.8)
[2021-06-29 05:09] LABS: Albumin 2.9 g/dL (3.2-5.2); Albumin/Globulin Ratio 1.3 (1-3); Calcium 8.5 mg/dL (8.6-10.3); Globulin 2.2 g/dL (2-4); Magnesium 2.4 mg/dL (1.9-2.7); Phosphorus 3.1 mg/dL (2.5-5.0); Potassium 3.1 mmol/L (3.5-5.0); Total Protein 5.1 g/dL (6.4-8.9); eGFR CKD-EPI 94.3 (>60)
[2021-06-29 05:15] LABS: INR 2.22 (0.86-1.15)
[2021-06-29 05:31] LABS: Anisocytosis 1+; Polychromasia 1+
[2021-06-29 05:32] LABS: ABS Basophils 0.1 10^3/ul (0-0.2); ABS Eosinophils 0.1 10^3/ul (0-0.6); ABS Lymphocytes 15.7 10^3/ul (1.0-4.8); ABS Monocytes 0.9 10^3/ul (0-0.8); ABS Neutrophils 16.4 10^3/ul (1.5-7.7); ABS Nucleated RBC 5.2 10^3/ul; Eosinophil % 0.2 %; Lymphocyte % 47.3 %; Nucleated Red Blood Cells % 15.5
[2021-06-29] MEDS: KCL 20 MEQ/100 ML IVPREMIX 20 MEQ/100 ML BAG IV SCH ×3 (05:46→10:35)
[2021-06-29] MEDS: Meropenem 1 GM PREMIX(*) 1 GM/50 ML BAG IV SCH ×3 (05:47→22:26)
[2021-06-29] MEDS ORDERED: Lactated Ringers 1000 ml BAG 1,000 ML IV ONE (07:51)
[2021-06-29] MEDS: methylPREDNISolone 125 mg 2 ML VIAL IV SCH ×2 (08:36→19:51)
[2021-06-29] MEDS: Multivitamins/Minerals TAB PO SCH (08:37)
[2021-06-29] MEDS: Vancomycin 1,500 MG in NS 0.9% 250 ml 250 ML IVPB SCH (08:37)
[2021-06-29] MEDS: RIVASTIGMINE 1.5 MG PO SCH ×2 (08:37→19:47)
[2021-06-29] MEDS: Pantoprazole VIAL 40 MG VIAL IV SCH (08:37)
[2021-06-29] MEDS: Enoxaparin 40 MG/0.4 ML SYR SUBCUT SCH (10:35)
[2021-06-30 04:46] LABS: Albumin/Globulin Ratio 1.5 (1-3); Alkaline Phosphatase 155 U/L (35-149); Blood Urea Nitrogen 39 mg/dL (6-24); CO2 Carbon Dioxide 29 mmol/L (22-32); Calcium 8.7 mg/dL (8.6-10.3); Chloride 106 mmol/L (101-111); Glucose 146 mg/dL (70-100); Magnesium 2.5 mg/dL (1.9-2.7); Sodium 141 mmol/L (135-145); eGFR CKD-EPI 95.3 (>60)
[2021-06-30 04:57] LABS: Hematocrit 22 % (42-52); Hemoglobin 7.2 g/dL (14.0-18.0); Mean Corpuscular HGB Conc 32 g/dL (31-36); Mean Corpuscular Hemoglobin 29 pg (27-31); Mean Corpuscular Volume 91 fL (80-94); Mean Platelet Volume 9.6 fL (7.4-10.4); Platelet Count 307 10^3/uL (150-450); Red Blood Count 2.45 10^6 /uL (4.18-5.48); Red Cell Distribution Width 16 % (10-15)
[2021-06-30 05:19] LABS: Polychromasia 2+
[2021-06-30 05:22] LABS: Hypochromasia 1+
[2021-06-30 05:23] LABS: Spherocytes 1+
[2021-06-30 05:29] LABS: Anisocytosis 2+
[2021-06-30] MEDS: Meropenem 1 GM PREMIX(*) 1 GM/50 ML BAG IV SCH ×3 (05:40→22:45)
[2021-06-30 06:20] LABS: ALT 1814 U/L (7-52)
[2021-06-30] MEDS ORDERED: Vancomycin Trough Check NOTE FOLLOW UP ONE (07:30)
[2021-06-30 08:04] LABS: Anion Gap 6 mmol/L (2-11)
[2021-06-30 08:15] LABS: ABS Basophils 0.3 10^3/ul (0-0.2); ABS Lymphocytes 26.6 10^3/ul (1.0-4.8); ABS Monocytes 1.3 10^3/ul (0-0.8); ABS Neutrophils 20.5 10^3/ul (1.5-7.7); ABS Nucleated RBC 66.1 10^3/ul; Eosinophil % 0.1 %; Lymphocyte % 54.7 %; Nucleated Red Blood Cells % 135.7; White Blood Count 48.7 10^3/uL (3.5-10.8)
[2021-06-30] MEDS: methylPREDNISolone 125 mg 2 ML VIAL IV SCH ×3 (10:21→22:45)
[2021-06-30] MEDS: Multivitamins/Minerals TAB PO SCH ×2 (10:22→10:37)
[2021-06-30] MEDS: Enoxaparin 40 MG/0.4 ML SYR SUBCUT SCH (10:22)
[2021-06-30] MEDS: Pantoprazole VIAL 40 MG VIAL IV SCH (10:22)
[2021-06-30] MEDS: RIVASTIGMINE 1.5 MG PO SCH ×3 (10:23→19:51)
[2021-06-30] MEDS ORDERED: NS 0.9% IVPB ONE (10:30)
[2021-06-30] MEDS ORDERED: diPHENhydraMINE IV 50 MG/ML 1 ml VIAL (BENADRYL) IV ONE (10:30)
[2021-06-30] MEDS ORDERED: RITUXIMAB ABBS IVPB ONE (10:30)
[2021-06-30 10:57] LABS: Hematocrit 22 % (42-52); Mean Corpuscular HGB Conc 32 g/dL (31-36); Mean Corpuscular Hemoglobin 29 pg (27-31); Mean Corpuscular Volume 91 fL (80-94); Mean Platelet Volume 9.8 fL (7.4-10.4); Platelet Count 292 10^3/uL (150-450); Red Blood Count 2.43 10^6 /uL (4.18-5.48); Red Cell Distribution Width 16 % (10-15); White Blood Count 50.4 10^3/uL (3.5-10.8)
[2021-06-30 11:05] LABS: INR 1.75 (0.86-1.15)
[2021-06-30 18:38] LABS: Hematocrit 25 % (42-52); Hemoglobin 8.2 g/dL (14.0-18.0); Mean Corpuscular HGB Conc 33 g/dL (31-36); Mean Corpuscular Hemoglobin 30 pg (27-31); Mean Corpuscular Volume 92 fL (80-94); Mean Platelet Volume 9.9 fL (7.4-10.4); Platelet Count 269 10^3/uL (150-450); Red Blood Count 2.74 10^6 /uL (4.18-5.48); Red Cell Distribution Width 16 % (10-15); White Blood Count 42.8 10^3/uL (3.5-10.8)
[2021-07-01] MEDS ORDERED: RHO D Immune Globulin (HUMAN) 300 MCG = 1,500 I.U. INJ IM ONE (02:24)
[2021-07-01] MEDS: Meropenem 1 GM PREMIX(*) 1 GM/50 ML BAG IV SCH ×3 (05:36→23:04)
[2021-07-01] MEDS: methylPREDNISolone 125 mg 2 ML VIAL IV SCH ×2 (07:49→16:55)
[2021-07-01] MEDS: Pantoprazole VIAL 40 MG VIAL IV SCH (07:50)
[2021-07-01] MEDS: Enoxaparin 40 MG/0.4 ML SYR SUBCUT SCH (08:01)
[2021-07-01] MEDS: RIVASTIGMINE 1.5 MG PO SCH ×2 (08:02→23:05)
[2021-07-01] MEDS: Multivitamins/Minerals TAB PO SCH (08:02)
[2021-07-01 09:47] LABS: Albumin 3.1 g/dL (3.2-5.2); Albumin/Globulin Ratio 1.6 (1-3); Calcium 8.9 mg/dL (8.6-10.3); Hematocrit 24 % (42-52); Hemoglobin 7.9 g/dL (14.0-18.0); Magnesium 2.9 mg/dL (1.9-2.7); Mean Corpuscular HGB Conc 34 g/dL (31-36); Mean Corpuscular Hemoglobin 31 pg (27-31); Mean Corpuscular Volume 92 fL (80-94); Mean Platelet Volume 10.6 fL (7.4-10.4); Platelet Count 237 10^3/uL (150-450); Red Blood Count 2.56 10^6 /uL (4.18-5.48); Red Cell Distribution Width 16 % (10-15); Total Bilirubin 3.7 mg/dL (0.2-1.0); Total Protein 5.1 g/dL (6.4-8.9); White Blood Count 48.6 10^3/uL (3.5-10.8); eGFR CKD-EPI 96.1 (>60)
[2021-07-01 09:52] LABS: Phosphorus 3.5 mg/dL (2.5-5.0); Potassium 4.1 mmol/L (3.5-5.0)
[2021-07-01] MEDS ORDERED: NS 0.9% 1000 ml BAG 1,000 ML IV SCH (10:15)
[2021-07-01 11:17] LABS: ABS Basophils 0.3 10^3/ul (0-0.2); ABS Eosinophils 0.1 10^3/ul (0-0.6); ABS Lymphocytes 22.5 10^3/ul (1.0-4.8); ABS Monocytes 1.7 10^3/ul (0-0.8); ABS Nucleated RBC 18.8 10^3/ul; Eosinophil % 0.2 %; Lymphocyte % 46.3 %; Nucleated Red Blood Cells % 38.6; Polychromasia 2+
[2021-07-01 15:17] LABS: eGFR CKD-EPI 92.9 (>60)
[2021-07-01] MEDS ORDERED: Magnesium Hydroxide LIQ 30 ML UDC PO PRN (17:52)
[2021-07-01] MEDS ORDERED: Polyethylene Glycol 3350 17 GM PACKET PO PRN (17:52)
[2021-07-01] MEDS ORDERED: Senna TAB 8.6 mg TAB PO PRN (17:52)
[2021-07-01] MEDS ORDERED: D5W 1/2 NS 1000 ml BAG 1,000 ML IV SCH (18:00)
[2021-07-01] MEDS: Magnesium Hydroxide LIQ 30 ML UDC PO SCH (20:14)
[2021-07-02] MEDS: methylPREDNISolone 125 mg 2 ML VIAL IV SCH ×4 (00:26→23:53)
[2021-07-02] MEDS: Meropenem 1 GM PREMIX(*) 1 GM/50 ML BAG IV SCH ×3 (05:15→21:44)
[2021-07-02 06:29] LABS: Albumin/Globulin Ratio 1.5 (1-3); Calcium 8.7 mg/dL (8.6-10.3); Magnesium 2.9 mg/dL (1.9-2.7); Total Bilirubin 2.9 mg/dL (0.2-1.0); eGFR CKD-EPI 95.7 (>60)
[2021-07-02 06:35] LABS: Phosphorus 3.5 mg/dL (2.5-5.0); Potassium 4.2 mmol/L (3.5-5.0)
[2021-07-02 06:47] LABS: INR 1.65 (0.86-1.15)
[2021-07-02 08:04] LABS: Eosinophil % 0.1 %; Hematocrit 21 % (42-52); Hemoglobin 7.4 g/dL (14.0-18.0); Lymphocyte % 45.4 %; Mean Corpuscular HGB Conc 34 g/dL (31-36); Mean Corpuscular Hemoglobin 32 pg (27-31); Mean Corpuscular Volume 93 fL (80-94); Mean Platelet Volume 11.2 fL (7.4-10.4); Platelet Count 168 10^3/uL (150-450); Red Blood Count 2.31 10^6 /uL (4.18-5.48); Red Cell Distribution Width 16 % (10-15)
[2021-07-02 08:24] LABS: White Blood Count 40.1 10^3/uL (3.5-10.8)
[2021-07-02 08:30] LABS: Basophilic Stippling 1+; Polychromasia 2+
[2021-07-02 08:31] LABS: ABS Basophils 0.2 10^3/ul (0-0.2); ABS Lymphocytes 18.2 10^3/ul (1.0-4.8); ABS Monocytes 1.2 10^3/ul (0-0.8); ABS Neutrophils 20.6 10^3/ul (1.5-7.7); ABS Nucleated RBC 44.5 10^3/ul; Nucleated Red Blood Cells % 110.8
[2021-07-02] MEDS: Enoxaparin 40 MG/0.4 ML SYR SUBCUT SCH (09:32)
[2021-07-02] MEDS: Pantoprazole VIAL 40 MG VIAL IV SCH (09:32)
[2021-07-02] MEDS: Magnesium Hydroxide LIQ 30 ML UDC PO SCH ×2 (09:50→21:40)
[2021-07-02] MEDS: RIVASTIGMINE 1.5 MG PO SCH ×2 (09:50→21:43)
[2021-07-02] MEDS: Multivitamins/Minerals TAB PO SCH (09:50)
[2021-07-02] MEDS ORDERED: D5W 1/2 NS 1000 ml BAG 1,000 ML IV SCH ×2 (11:11→17:25)
[2021-07-02 16:49] LABS: Calcium 8.4 mg/dL (8.6-10.3)
[2021-07-02 16:51] LABS: Rapid COVID-19 Molecular Undetected (Undetected)
[2021-07-02 17:03] LABS: Potassium 4.2 mmol/L (3.5-5.0)
[2021-07-03] MEDS: Meropenem 1 GM PREMIX(*) 1 GM/50 ML BAG IV SCH (04:48)
[2021-07-03 07:17] LABS: INR 1.68 (0.86-1.15)
[2021-07-03 07:22] LABS: Hematocrit 25 % (42-52); Hemoglobin 7.9 g/dL (14.0-18.0); Mean Corpuscular HGB Conc 32 g/dL (31-36); Mean Corpuscular Hemoglobin 31 pg (27-31); Mean Corpuscular Volume 97 fL (80-94); Mean Platelet Volume 11.6 fL (7.4-10.4); Platelet Count 157 10^3/uL (150-450); Red Blood Count 2.57 10^6 /uL (4.18-5.48); Red Cell Distribution Width 16 % (10-15)
[2021-07-03 07:29] LABS: Albumin 3.1 g/dL (3.2-5.2); Albumin/Globulin Ratio 1.6 (1-3); Alkaline Phosphatase 380 U/L (35-149); Blood Urea Nitrogen 42 mg/dL (6-24); CO2 Carbon Dioxide 34 mmol/L (22-32); Globulin 1.9 g/dL (2-4); Glucose 144 mg/dL (70-100); eGFR CKD-EPI 97.3 (>60)
[2021-07-03] MEDS: RIVASTIGMINE 1.5 MG PO SCH ×2 (07:44→22:46)
[2021-07-03] MEDS: Multivitamins/Minerals TAB PO SCH (07:44)
[2021-07-03] MEDS: Magnesium Hydroxide LIQ 30 ML UDC PO SCH ×2 (07:44→22:47)
[2021-07-03] MEDS: Enoxaparin 40 MG/0.4 ML SYR SUBCUT SCH (07:52)
[2021-07-03 07:58] LABS: ALT 648 U/L (7-52)
[2021-07-03 07:59] LABS: Chloride 114 mmol/L (101-111); Sodium 153 mmol/L (135-145)
[2021-07-03 08:10] LABS: Anion Gap 5 mmol/L (2-11)
[2021-07-03 08:38] LABS: ABS Basophils 0.3 10^3/ul (0-0.2); ABS Lymphocytes 13.3 10^3/ul (1.0-4.8); ABS Monocytes 1.1 10^3/ul (0-0.8); ABS Neutrophils 17.8 10^3/ul (1.5-7.7); ABS Nucleated RBC 59.8 10^3/ul; Eosinophil % 0.1 %; Lymphocyte % 40.9 %; Nucleated Red Blood Cells % 183.7; White Blood Count 32.5 10^3/uL (3.5-10.8)
[2021-07-03 08:39] LABS: Anisocytosis 2+; Polychromasia 2+
[2021-07-03] MEDS ORDERED: cefTRIAXone 1 gm/50 mL NS BAG 1 GM/50 ML BAG IVPB SCH (10:30)
[2021-07-03] MEDS ORDERED: D5W 1000 ml BAG 1,000 ML IV SCH ×4 (11:00→14:14)
[2021-07-03] MEDS: methylPREDNISolone 125 mg 2 ML VIAL IV SCH ×3 (11:27→22:47)
[2021-07-03] MEDS: Pantoprazole VIAL 40 MG VIAL IV SCH (11:28)
[2021-07-03 11:59] LABS: C Reactive Protein 84.02 mg/L (<8.01)
[2021-07-03 12:47] LABS: Potassium, Whole Blood 3.9 mmol/L (3.4-4.5)
[2021-07-03 19:42] LABS: Urine Osmo 741 mOsm/kg (150-1150)
[2021-07-03 22:11] LABS: Calcium 8.3 mg/dL (8.6-10.3); eGFR CKD-EPI 92.2 (>60)
[2021-07-03 23:22] LABS: Potassium 4.2 mmol/L (3.5-5.0)
[2021-07-04] MEDS ORDERED: Linezolid 600 MG IVPREMIX(*) 600 MG/300 ML BAG IVPB SCH (04:00)
[2021-07-04] MEDS: Linezolid 600 MG IVPREMIX(*) 600 MG/300 ML BAG IVPB SCH ×2 (06:34→17:37)
[2021-07-04 06:45] LABS: ALT 436 U/L (7-52); Albumin 2.9 g/dL (3.2-5.2); Albumin/Globulin Ratio 1.6 (1-3); Alkaline Phosphatase 356 U/L (35-149); Blood Urea Nitrogen 40 mg/dL (6-24); CO2 Carbon Dioxide 34 mmol/L (22-32); Calcium 8.1 mg/dL (8.6-10.3); Chloride 105 mmol/L (101-111); Globulin 1.8 g/dL (2-4); Glucose 137 mg/dL (70-100); Magnesium 2.7 mg/dL (1.9-2.7); Sodium 143 mmol/L (135-145); Total Protein 4.7 g/dL (6.4-8.9); eGFR CKD-EPI 96.1 (>60)
[2021-07-04 06:51] LABS: Anion Gap 4 mmol/L (2-11)
[2021-07-04 08:02] LABS: Mean Platelet Volume 11.4 fL (7.4-10.4); Platelet Count 149 10^3/uL (150-450)
[2021-07-04] MEDS ORDERED: D5W 1000 ml BAG 1,000 ML IV SCH (10:00)
[2021-07-04 10:59] LABS: Hematocrit 24 % (42-52); Mean Corpuscular HGB Conc 31 g/dL (31-36); Mean Corpuscular Hemoglobin 30 pg (27-31); Mean Corpuscular Volume 97 fL (80-94); Red Blood Count 2.51 10^6 /uL (4.18-5.48)
[2021-07-04 11:00] LABS: Red Cell Distribution Width 17 % (10-15)
[2021-07-04 11:03] LABS: Hemoglobin 7.5 g/dL (14.0-18.0)
[2021-07-04 11:05] LABS: ABS Basophils 0.4 10^3/ul (0-0.2); ABS Eosinophils 0.1 10^3/ul (0-0.6); ABS Lymphocytes 13.1 10^3/ul (1.0-4.8); ABS Neutrophils 20.4 10^3/ul (1.5-7.7); ABS Nucleated RBC 29.2 10^3/ul; Eosinophil % 0.3 %; Lymphocyte % 37.3 %; Nucleated Red Blood Cells % 83.2
[2021-07-04 11:10] LABS: Anisocytosis 2+; Polychromasia 2+
[2021-07-04] MEDS: methylPREDNISolone 125 mg 2 ML VIAL IV SCH ×3 (11:14→23:20)
[2021-07-04] MEDS: Pantoprazole VIAL 40 MG VIAL IV SCH (11:14)
[2021-07-04] MEDS: RIVASTIGMINE 1.5 MG PO SCH ×2 (11:15→20:41)
[2021-07-04] MEDS: Multivitamins/Minerals TAB PO SCH (11:16)
[2021-07-04] MEDS: Magnesium Hydroxide LIQ 30 ML UDC PO SCH ×2 (11:17→20:41)
[2021-07-04] MEDS: Enoxaparin 40 MG/0.4 ML SYR SUBCUT SCH (11:29)
[2021-07-04 11:56] LABS: Blood Urea Nitrogen 39 mg/dL (6-24); CO2 Carbon Dioxide 34 mmol/L (22-32); Calcium 8.2 mg/dL (8.6-10.3); Chloride 106 mmol/L (101-111); Glucose 126 mg/dL (70-100); Sodium 143 mmol/L (135-145); eGFR CKD-EPI 98.1 (>60)
[2021-07-04 12:58] LABS: Sodium, Whole Blood 140 mmol/L (136-145)
[2021-07-04 13:01] LABS: Anion Gap 3 mmol/L (2-11)
[2021-07-04 18:35] LABS: Calcium 8.3 mg/dL (8.6-10.3); eGFR CKD-EPI 93.6 (>60)
[2021-07-04 18:37] LABS: Potassium 4.4 mmol/L (3.5-5.0)
[2021-07-05] MEDS: Linezolid 600 MG IVPREMIX(*) 600 MG/300 ML BAG IVPB SCH ×2 (05:04→17:36)
[2021-07-05] MEDS: Magnesium Hydroxide LIQ 30 ML UDC PO SCH ×2 (07:56→20:33)
[2021-07-05] MEDS: Multivitamins/Minerals TAB PO SCH (07:58)
[2021-07-05 08:10] LABS: Hematocrit 23 % (42-52); Hemoglobin 7.3 g/dL (14.0-18.0); Mean Corpuscular HGB Conc 31 g/dL (31-36); Mean Corpuscular Hemoglobin 31 pg (27-31); Mean Corpuscular Volume 99 fL (80-94); Mean Platelet Volume 11.8 fL (7.4-10.4); Platelet Count 170 10^3/uL (150-450); Red Blood Count 2.37 10^6 /uL (4.18-5.48); Red Cell Distribution Width 17 % (10-15)
[2021-07-05] MEDS: RIVASTIGMINE 1.5 MG PO SCH ×2 (08:11→20:39)
[2021-07-05 08:18] LABS: Albumin 2.8 g/dL (3.2-5.2); Albumin/Globulin Ratio 1.6 (1-3); Calcium 8.2 mg/dL (8.6-10.3); Globulin 1.7 g/dL (2-4); Magnesium 2.6 mg/dL (1.9-2.7); Phosphorus 3.6 mg/dL (2.5-5.0); Potassium 4.1 mmol/L (3.5-5.0); Total Bilirubin 2.1 mg/dL (0.2-1.0); Total Protein 4.5 g/dL (6.4-8.9); eGFR CKD-EPI 98.5 (>60)
[2021-07-05] MEDS: methylPREDNISolone 125 mg 2 ML VIAL IV SCH ×3 (08:32→23:35)
[2021-07-05] MEDS: Pantoprazole VIAL 40 MG VIAL IV SCH (08:32)
[2021-07-05] MEDS: Enoxaparin 40 MG/0.4 ML SYR SUBCUT SCH (08:32)
[2021-07-05 08:52] LABS: White Blood Count 29.1 10^3/uL (3.5-10.8)
[2021-07-05 08:57] LABS: Anisocytosis 1+; Polychromasia 2+
[2021-07-05 08:58] LABS: ABS Lymphocytes 8.1 10^3/ul (1.0-4.8); ABS Neutrophils 20.4 10^3/ul (1.5-7.7)
[2021-07-05] MEDS ORDERED: Naloxone 0.4 mg VIAL 0.4 mg/ml 1 ml VIAL ONE (09:10)
[2021-07-05] MEDS ORDERED: Flumazenil 0.5 mg/5 ml 0.1 MG/ML 5 ml VIAL ONE (09:10)
[2021-07-05] MEDS ORDERED: Midazolam 5 mg/5 ml VIAL 1 mg/ml 5 ml VIAL (5 mg) ONE (09:10)
[2021-07-05] MEDS ORDERED: fentaNYL 100 mcg/2 ml 50 MCG/ML VIAL ONE (09:10)
[2021-07-06] MEDS: Linezolid 600 MG IVPREMIX(*) 600 MG/300 ML BAG IVPB SCH ×2 (05:37→17:20)
[2021-07-06 05:49] LABS: Hematocrit 25 % (42-52); Hemoglobin 8.3 g/dL (14.0-18.0); Mean Corpuscular HGB Conc 34 g/dL (31-36); Mean Corpuscular Hemoglobin 33 pg (27-31); Mean Corpuscular Volume 100 fL (80-94); Mean Platelet Volume 11.6 fL (7.4-10.4); Platelet Count 197 10^3/uL (150-450); Red Blood Count 2.49 10^6 /uL (4.18-5.48); Red Cell Distribution Width 17 % (10-15)
[2021-07-06 06:04] LABS: Albumin/Globulin Ratio 1.9 (1-3); Calcium 8.2 mg/dL (8.6-10.3); Globulin 1.6 g/dL (2-4); Magnesium 2.6 mg/dL (1.9-2.7); Potassium 4.2 mmol/L (3.5-5.0); Total Protein 4.6 g/dL (6.4-8.9); eGFR CKD-EPI 96.1 (>60)
[2021-07-06 06:10] LABS: ABS Basophils 0.1 10^3/ul (0-0.2); ABS Lymphocytes 8.8 10^3/ul (1.0-4.8); ABS Monocytes 0.7 10^3/ul (0-0.8); ABS Neutrophils 16.1 10^3/ul (1.5-7.7); ABS Nucleated RBC 54.6 10^3/ul; Lymphocyte % 34.3 %; White Blood Count 25.8 10^3/uL (3.5-10.8)
[2021-07-06] MEDS: methylPREDNISolone 125 mg 2 ML VIAL IV SCH (08:52)
[2021-07-06] MEDS: Pantoprazole VIAL 40 MG VIAL IV SCH (08:53)
[2021-07-06] MEDS: Multivitamins/Minerals TAB PO SCH (08:53)
[2021-07-06] MEDS: Magnesium Hydroxide LIQ 30 ML UDC PO SCH ×2 (08:53→22:08)
[2021-07-06] MEDS: Enoxaparin 40 MG/0.4 ML SYR SUBCUT SCH (08:53)
[2021-07-06] MEDS: RIVASTIGMINE 1.5 MG PO SCH ×2 (11:32→22:13)
[2021-07-06] MEDS: methylPREDNISolone SOD 40 mg/ml 1 ml VIAL IV SCH ×2 (17:20→22:08)
[2021-07-07 06:13] LABS: Hematocrit 24 % (42-52); Mean Corpuscular HGB Conc 33 g/dL (31-36); Mean Corpuscular Hemoglobin 34 pg (27-31); Mean Corpuscular Volume 104 fL (80-94); Mean Platelet Volume 11.4 fL (7.4-10.4); Platelet Count 182 10^3/uL (150-450); Red Blood Count 2.35 10^6 /uL (4.18-5.48); Red Cell Distribution Width 19 % (10-15); White Blood Count 20.4 10^3/uL (3.5-10.8)
[2021-07-07 06:30] LABS: ALT 184 U/L (7-52); AST 48 U/L (13-39); Albumin 2.9 g/dL (3.2-5.2); Albumin/Globulin Ratio 1.8 (1-3); Alkaline Phosphatase 325 U/L (35-149); Anion Gap 5 mmol/L (2-11); Blood Urea Nitrogen 30 mg/dL (6-24); CO2 Carbon Dioxide 31 mmol/L (22-32); Calcium 8.2 mg/dL (8.6-10.3); Chloride 101 mmol/L (101-111); Globulin 1.6 g/dL (2-4); Glucose 117 mg/dL (70-100); Magnesium 2.4 mg/dL (1.9-2.7); Potassium 3.9 mmol/L (3.5-5.0); Sodium 137 mmol/L (135-145); Total Protein 4.5 g/dL (6.4-8.9); eGFR CKD-EPI 93.6 (>60)
[2021-07-07] MEDS: Linezolid 600 MG IVPREMIX(*) 600 MG/300 ML BAG IVPB SCH ×2 (06:30→18:17)
[2021-07-07 06:46] LABS: ABS Basophils 0.1 10^3/ul (0-0.2); ABS Lymphocytes 6.4 10^3/ul (1.0-4.8); ABS Monocytes 0.7 10^3/ul (0-0.8); ABS Neutrophils 13.2 10^3/ul (1.5-7.7); ABS Nucleated RBC 32.5 10^3/ul; Lymphocyte % 31.4 %; Nucleated Red Blood Cells % 159.1
[2021-07-07] MEDS ORDERED: diPHENhydraMINE IV 50 MG/ML 1 ml VIAL (BENADRYL) IV ONE (09:09)
[2021-07-07] MEDS ORDERED: riTUXimab-ABBS 10 MG/ML 10 ML VIAL IVPB ONE (09:09)
[2021-07-07] MEDS: methylPREDNISolone SOD 40 mg/ml 1 ml VIAL IV SCH ×2 (09:44→18:17)
[2021-07-07] MEDS: Multivitamins/Minerals TAB PO SCH (09:44)
[2021-07-07] MEDS: Enoxaparin 40 MG/0.4 ML SYR SUBCUT SCH (09:44)
[2021-07-07] MEDS: Pantoprazole VIAL 40 MG VIAL IV SCH (09:44)
[2021-07-07] MEDS: RIVASTIGMINE 1.5 MG PO SCH ×2 (09:45→21:25)
[2021-07-07] MEDS: Magnesium Hydroxide LIQ 30 ML UDC PO SCH ×2 (09:46→21:24)
[2021-07-07] MEDS ORDERED: NS 0.9% IVPB ONE (10:00)
[2021-07-07] MEDS ORDERED: RITUXIMAB ABBS IVPB ONE (10:00)
[2021-07-07 13:27] LABS: Vitamin B12 > 1450 pg/mL (180-914)
[2021-07-07 13:28] LABS: Folate 16.25 ng/mL (5.90-24.80)
[2021-07-08] MEDS: methylPREDNISolone SOD 40 mg/ml 1 ml VIAL IV SCH ×3 (00:32→16:13)
[2021-07-08] MEDS: Linezolid 600 MG IVPREMIX(*) 600 MG/300 ML BAG IVPB SCH ×2 (05:37→17:37)
[2021-07-08 06:20] LABS: Rapid COVID-19 Molecular Undetected (Undetected)
[2021-07-08] MEDS: Multivitamins/Minerals TAB PO SCH (08:52)
[2021-07-08] MEDS: Calcium (OSCAL) 500 mg TAB PO SCH (08:52)
[2021-07-08] MEDS: Pantoprazole VIAL 40 MG VIAL IV SCH (08:52)
[2021-07-08] MEDS: Enoxaparin 40 MG/0.4 ML SYR SUBCUT SCH (08:53)
[2021-07-08] MEDS: Magnesium Hydroxide LIQ 30 ML UDC PO SCH ×2 (08:53→21:55)
[2021-07-08] MEDS: RIVASTIGMINE 1.5 MG PO SCH ×2 (09:13→21:55)
[2021-07-08 12:08] LABS: Hematocrit 28 % (42-52); Hemoglobin 8.7 g/dL (14.0-18.0); Mean Corpuscular HGB Conc 31 g/dL (31-36); Mean Corpuscular Hemoglobin 34 pg (27-31); Mean Corpuscular Volume 107 fL (80-94); Mean Platelet Volume 11.4 fL (7.4-10.4); Platelet Count 209 10^3/uL (150-450); Red Blood Count 2.59 10^6 /uL (4.18-5.48); Red Cell Distribution Width 29 % (10-15); White Blood Count 20.9 10^3/uL (3.5-10.8)
[2021-07-08 12:15] LABS: Calcium 8.5 mg/dL (8.6-10.3); eGFR CKD-EPI 93.6 (>60)
[2021-07-08 12:43] LABS: Vitamin D Total 25(OH) 40.1 ng/mL (20-50)
[2021-07-08 13:00] LABS: Potassium 3.9 mmol/L (3.5-5.0)
[2021-07-08 13:24] LABS: Macrocytosis 1+; Polychromasia 2+
[2021-07-08 13:25] LABS: ABS Lymphocytes 4.7 10^3/ul (1.0-4.8); ABS Monocytes 0.7 10^3/ul (0-0.8); ABS Neutrophils 15.5 10^3/ul (1.5-7.7); Lymphocyte % 22.5 %; Nucleated Red Blood Cells % 91.2
[2021-07-09] MEDS: Magnesium Hydroxide LIQ 30 ML UDC PO SCH (00:07)
[2021-07-09] MEDS: methylPREDNISolone SOD 40 mg/ml 1 ml VIAL IV SCH ×3 (00:17→17:34)
[2021-07-09] MEDS: Linezolid 600 MG IVPREMIX(*) 600 MG/300 ML BAG IVPB SCH ×2 (05:27→17:34)
[2021-07-09 05:34] LABS: Hematocrit 27 % (42-52); Hemoglobin 8.6 g/dL (14.0-18.0); Mean Corpuscular HGB Conc 32 g/dL (31-36); Mean Corpuscular Hemoglobin 33 pg (27-31); Mean Corpuscular Volume 104 fL (80-94); Mean Platelet Volume 10.1 fL (7.4-10.4); Platelet Count 201 10^3/uL (150-450); Red Blood Count 2.61 10^6 /uL (4.18-5.48); Red Cell Distribution Width 29 % (10-15); White Blood Count 14.5 10^3/uL (3.5-10.8)
[2021-07-09 05:37] LABS: ABS Basophils 0.1 10^3/ul (0-0.2); ABS Lymphocytes 3.9 10^3/ul (1.0-4.8); ABS Monocytes 0.4 10^3/ul (0-0.8); ABS Neutrophils 10.2 10^3/ul (1.5-7.7); Lymphocyte % 26.6 %; Nucleated Red Blood Cells % 82.7
[2021-07-09 05:52] LABS: Albumin 2.9 g/dL (3.2-5.2); Albumin/Globulin Ratio 1.9 (1-3); Calcium 8.1 mg/dL (8.6-10.3); Direct Bilirubin 0.2 mg/dL (0.03-0.18); Globulin 1.5 g/dL (2-4); Indirect Bilirubin 1.4 mg/dL (0.3-1.0); Potassium 3.7 mmol/L (3.5-5.0); Total Bilirubin 1.6 mg/dL (0.2-1.0); Total Protein 4.4 g/dL (6.4-8.9); eGFR CKD-EPI 98.1 (>60)
[2021-07-09] MEDS: Calcium (OSCAL) 500 mg TAB PO SCH (10:38)
[2021-07-09] MEDS: Enoxaparin 40 MG/0.4 ML SYR SUBCUT SCH (10:38)
[2021-07-09] MEDS: Pantoprazole VIAL 40 MG VIAL IV SCH (10:38)
[2021-07-09] MEDS: Multivitamins/Minerals TAB PO SCH (10:38)
[2021-07-09] MEDS: RIVASTIGMINE 1.5 MG PO SCH ×2 (10:52→21:43)
[2021-07-10] MEDS: methylPREDNISolone SOD 40 mg/ml 1 ml VIAL IV SCH (00:34)
[2021-07-10 05:29] LABS: ABS Lymphocytes 2.7 10^3/ul (1.0-4.8); ABS Monocytes 0.4 10^3/ul (0-0.8); ABS Neutrophils 7.8 10^3/ul (1.5-7.7); ABS Nucleated RBC 5.9 10^3/ul; Eosinophil % 0.1 %; Hematocrit 28 % (42-52); Hemoglobin 8.6 g/dL (14.0-18.0); Lymphocyte % 24.9 %; Mean Corpuscular HGB Conc 31 g/dL (31-36); Mean Corpuscular Hemoglobin 33 pg (27-31); Mean Corpuscular Volume 106 fL (80-94); Mean Platelet Volume 9.4 fL (7.4-10.4); Nucleated Red Blood Cells % 53.8; Platelet Count 190 10^3/uL (150-450); Red Blood Count 2.58 10^6 /uL (4.18-5.48); Red Cell Distribution Width 29 % (10-15)
[2021-07-10 05:41] LABS: Calcium 8.2 mg/dL (8.6-10.3); Potassium 3.5 mmol/L (3.5-5.0); eGFR CKD-EPI 96.1 (>60)
[2021-07-10 08:05] VITALS: BP 118/52
[2021-07-10] MEDS: Linezolid 600 MG IVPREMIX(*) 600 MG/300 ML BAG IVPB SCH (08:56)
[2021-07-10] MEDS ORDERED: methylPREDNISolone 125 mg 2 ML VIAL IV SCH (10:00)
== END 2021-07-10 11:00 | disposition left against medical advice (07) | DRG 871 ==
LOC: ED 15:27 → SUATTDRO 18:16 → EDHOLD 18:16 → ICU 19:29 → MED 06-30 15:00 → MEDTELE 07-06 00:50
PROVIDERS: ADMIT Internal Medicine; ATTEND Internal Medicine